=== PATIENT | male | born 1980 | race Caucasian/White ===

== ENCOUNTER 2019-02-16 22:16 | Emergency (ER) | payer MEDICAID ==
[~2019-02-16] VITALS: Ht 172.7 cm; Wt 72.6 kg
[2019-02-16 22:16] VITALS: BP 182/115
--- NOTE | 2019-02-16 22:26 | NUR ---
PT BIBA FOR ALTERED MENTAL STATUS. [place] [employer] CALLED 911. PT AWAKE AND LAUGHING. PT ADMITTED TO SMOKING METHAMPHETAMINE. PT ABLE TO ABULATE BUT HAS VISUAL DISTURBANCES. PT RECENTLY WAS RELEASED FROM A PSYCH FACILITY, BUT PT NOT STATING FROM WHERE AT THIS TIME. UNABLE TO OBTAIN BP, PT KEEPS MOVING AROUND AND LAUGHING. PT IS HOMELESS. DENIES ANY ALLERGIES AND MED HX. SAFETY MEASURES IN PLACE. HEAD OF BED ELEVATED, BEDRAILS UP X2, BED IN LOWEST POSITION. WAITING FOR ERMD TO EVALUATE PT.
--- NOTE | 2019-02-16 22:33 | NUR ---
PT A&O X4 TO PERSON, PLACE, TIME, AND PURPOSE. PT ADMITTED TO SMOKING MARIJUANA. DENIES SMOKING METHAMPHETAMINES. 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
--- NOTE | 2019-02-16 22:48 | NUR ---
PT GOING TO XRAY VIA WHEELCHAIR
--- NOTE | 2019-02-16 22:59 | NUR ---
LAB AT BEDSIDE
[2019-02-16 23:16] LABS: BASOPHILS # (AUTO) 0.1 K/uL (0.00-0.22); BASOPHILS % (AUTO) 1.1 % (0.0-2.0); EOSINOPHILS # (AUTO) 0.2 K/uL (0-0.4); EOSINOPHILS % (AUTO) 2.2 % (0.0-4.0); HEMATOCRIT 41.9 % (36-52); HEMOGLOBIN 14.2 g/dL (12.0-18.0); LYMPHOCYTES # (AUTO) 2.2 K/uL (2.0-11.5); LYMPHOCYTES % (AUTO) 20.7 % (20.5-51.1); MEAN CORPUSCULAR HEMOGLOBIN 31 pg (27-31); MEAN CORPUSCULAR HGB CONC 34 g/dL (33-37); MEAN CORPUSCULAR VOLUME 91.7 fL (80-94); MONOCYTES # (AUTO) 0.9 K/uL (0.8-1.0); MONOCYTES % (AUTO) 8.6 % (1.7-9.3); NEUTROPHILS # (AUTO) 7.2 K/uL (1.8-7.7); NEUTROPHILS % (AUTO) 67.4 % (42.2-75.2); PLATELET COUNT (AUTO) 270 K/uL (140-450); RED BLOOD CELL COUNT(AUTO) 4.57 MIL/uL (4.20-6.10); WHITE BLOOD COUNT (AUTO) 10.7 K/uL (4.8-10.8)
[2019-02-16 23:43] LABS: ALBUMIN 3.8 g/dL (3.4-5.0); ANION GAP 12.1 (8-16); ASPARTATE AMINOTRANSFERASE 20 U/L (15-37); CARBON DIOXIDE 29.1 mmol/L (21-32); CHLORIDE 107 mmol/L (98-107); CREATININE 1.5 mg/dL (0.7-1.3); GFR ARICAN-AMERICAN 68 mL/min (>90); GLUCOSE 70 mg/dL (74-106); POTASSIUM 4.2 mmol/L (3.5-5.1); SODIUM SERUM 144 mmol/L (136-145); UREA NITROGEN, BLOOD 32 mg/dL (7-18)
[2019-02-16 23:52] LABS: SALICYLATE < 2.8 mg/dL (2.8-20.0)
[2019-02-16 23:53] LABS: ACETAMINOPHEN < 0.5 ug/ml (10-30); TOTAL BILIRUBIN 0.4 mg/dL (0.0-1.0)
--- NOTE | 2019-02-17 00:03 | NUR ---
PT RESTING IN BED COMFORTABLY. VSS. WILL CONTINUE TO MONITOR.
[2019-02-17 00:23] VITALS: BP 182/115
--- NOTE | 2019-02-17 00:23 | NUR ---
PT DECLINED VITAL SIGNS PRIOR TO DISCHARGE.
--- NOTE | 2019-02-17 00:24 | NUR ---
Patient discharged. Written and verbal after care instructions given and explained. Patient verbalized understanding. Ambulatory with steady gait. All questions addressed prior to discharge. Advised to follow up with PMD.
[2019-02-17 01:22] LABS: BARBITURATE, URINE NEG. ng/ml (NEG <=200); BENZODIAZEPINE, URINE NEG. ng/mL (NEG <=200); CANNABINOID, URINE POS. ng/mL (NEG <=50); COCAINE, URINE NEG. ng/mL (NEG <=300); OPIATE, URINE NEG. ng/mL (NEG <=2000); PHENCYCLIDINE SCREEN,URINE NEG. ng/mL (NEG <=25)
== END 2019-02-17 00:23 | disposition home or self-care (01) ==
LOC: MED 22:16
DX: S00.83XA Contusion of other part of head, initial encounter (principal); F12.10 Cannabis abuse, uncomplicated; F15.10 Other stimulant abuse, uncomplicated; Z88.8 Allergy status to other drugs, medicaments and biological substances; W22.8XXA Striking against or struck by other objects, initial encounter; Y93.89 Activity, other specified; Y92.89 Other specified places as the place of occurrence of the external cause; Y99.8 Other external cause status
CPT/HCPCS: 36415; 70150; 80053; 80305; 85025; 93005; 99284; G0480; G0482